=== PATIENT | male | born 1975 | race Caucasian/White ===

== ENCOUNTER 2021-11-20 19:32 | Emergency (ER) | payer MEDICAID ==
[~2021-11-20] VITALS: Ht 175.3 cm; Wt 81.8 kg
--- NOTE | 2021-11-20 20:07 | NUR ---
PT ROOMED IN BED 15. ASSUMED CARE OF PT
[2021-11-20 20:16] LABS: BASOPHILS # (AUTO) 0.1 X10'3 (0-0.2); BASOPHILS % (AUTO) 0.6 % (0-1); EOSINOPHILS % (AUTO) 0.3 % (0-6); HEMATOCRIT 49.7 % (42.0-52.0); HEMOGLOBIN 16.8 g/dl (14.0-17.9); LYMPHOCYTES # (AUTO) 2.6 X10'3 (1.1-4.8); LYMPHOCYTES % (AUTO) 19.1 % (21-51); MEAN CORPUSCULAR HEMOGLOBIN 29.9 PG (27.0-31.0); MEAN CORPUSCULAR HGB CONC 33.8 g/dL (33.0-36.5); MEAN CORPUSCULAR VOLUME 88.6 FL (78-98); MEAN PLATELET VOLUME 8.4 FL (7.4-10.4); MONOCYTES % (AUTO) 7.5 % (2-12); NEUTROPHILS # (AUTO) 9.9 X10'3 (1.8-7.7); NEUTROPHILS % (AUTO) 72.5 % (42-75); PLATELET COUNT 292 X10'3 (140-440); RED BLOOD COUNT 5.61 X10'6 (4.70-6.10); WHITE BLOOD COUNT 13.6 X10'3 (4.5-11.0)
[2021-11-20 20:28] LABS: ALANINE AMINOTRANSFERASE 52 U/L (12-78); ALBUMIN 4.3 G/DL (3.4-5.0); ALBUMIN/GLOBULIN RATIO 1.1 (1.1-1.5); ALKALINE PHOSPHATASE 123 IU/L (46-116); ANION GAP 19 (8-16); ASPARTATE AMINO TRANSFERASE 49 U/L (10-37); BILIRUBIN,TOTAL 1.2 MG/DL (0.1-1.0); BLOOD UREA NITROGEN 17 MG/DL (7-18); BUN/CREATININE RATIO 12.4 (5.4-32.0); CALCIUM 9.6 MG/DL (8.5-10.1); CHLORIDE 90 MMOL/L (99-107); CREATININE 1.37 MG/DL (0.60-1.10); GLUCOSE 150 MG/DL (70-104); SODIUM 133 MMOL/L (135-145); TOTAL CARBON DIOXIDE 24.2 MMOL/L (24-32); TOTAL PROTEIN 8.2 G/DL (6.4-8.2); eGFR 56 ML/MIN
[2021-11-20 20:32] LABS: ETHANOL 0.135 GM/DL (0.0-0.010)
[2021-11-20] MEDS ORDERED: normal saline 1000ml 1,000 ML IV ONE ×2 (20:35)
[2021-11-20] MEDS ORDERED: ondansetron/PF 4mg/2ml inj IV ONE (20:35)
[2021-11-20 20:59] LABS: URINE AMPHETAMINE SCREEN NEGATIVE (Neg); URINE BARBITUATE SCREEN NEGATIVE (Neg); URINE BENZODIAZEPINES SCREEN NEGATIVE (Neg); URINE CANNABINOID SCREEN NEGATIVE (Neg); URINE COCAINE SCREEN NEGATIVE (Neg); URINE METHADONE SCREEN NEGATIVE (Neg); URINE OPIATE SCREEN NEGATIVE (Neg); URINE PHENCYCLIDINE SCREEN NEGATIVE (Neg)
[2021-11-20] MEDS ORDERED: LORazepam 2 mg/ml vial IV ONE (23:25)
[2021-11-21] MEDS ORDERED: magnesium oxide 400mg tablet PO ONE (00:50)
[2021-11-21] MEDS ORDERED: normal saline 1000ML IV soln IVB ONE (00:50)
[2021-11-21] MEDS ORDERED: haloperidol lactate 5mg/ml inj IM ONE (00:50)
[2021-11-21] MEDS ORDERED: normal saline 1000ml 1,000 ML IV ONE (00:50)
[2021-11-21] MEDS ORDERED: thiamine 100mg tablet PO ONE (00:55)
[2021-11-21] MEDS ORDERED: chlordiazePOXIDE 25mg capsule PO ONE (00:55)
[2021-11-21] MEDS ORDERED: folic acid 1mg tablet PO ONE (00:55)
[2021-11-21] MEDS ORDERED: CHLO25CA10 PO (00:57)
[2021-11-21] MEDS ORDERED: PROM12.512 PO (00:58)
[2021-11-21 01:10] LABS: MAGNESIUM 1.5 MG/DL (1.5-2.4)
[2021-11-21 02:23] VITALS: BP 129/74
== END 2021-11-21 03:19 | disposition home or self-care (01) ==
LOC: ER 19:33
DX: F10.230 Alcohol dependence with withdrawal, uncomplicated (principal); F41.9 Anxiety disorder, unspecified; Y90.9 Presence of alcohol in blood, level not specified; F12.10 Cannabis abuse, uncomplicated
CPT/HCPCS: 36415; 80053; 80305; 80320; 83735; 84484; 85025; 93005; 96361; 96372; 96374; 96375; 99285; J1630; J2060; J2405; J7030

== ENCOUNTER 2023-11-18 21:29 | Inpatient (IN) | payer MEDICAID ==
[~2023-11-18] VITALS: Ht 172.7 cm; Wt 73.8 kg
[~2023-11-18 21:29] MED LIST: CHLO25CA10 PO; PROM12.512 PO
[2023-11-18 22:00] LABS: BASOPHILS % (AUTO) 0.2 % (0-1); EOSINOPHILS % (AUTO) 0.1 % (0-6); HEMATOCRIT 42.8 % (42.0-52.0); HEMOGLOBIN 14.9 g/dl (14.0-17.9); LYMPHOCYTES % (AUTO) 24.4 % (21-51); MEAN CORPUSCULAR HEMOGLOBIN 31.6 PG (27.0-31.0); MEAN CORPUSCULAR HGB CONC 34.9 g/dL (33.0-36.5); MEAN CORPUSCULAR VOLUME 90.7 FL (78-98); MEAN PLATELET VOLUME 9.7 FL (7.4-10.4); MONOCYTES # (AUTO) 0.9 X10'3 (0-0.9); MONOCYTES % (AUTO) 10.9 % (2-12); NEUTROPHILS # (AUTO) 5.4 X10'3 (1.8-7.7); NEUTROPHILS % (AUTO) 64.4 % (42-75); PLATELET COUNT 69 X10'3 (140-440); RED BLOOD COUNT 4.72 X10'6 (4.70-6.10); RED CELL DISTRIBUTION WIDTH 14.1 % (11.5-14.5); WHITE BLOOD COUNT 8.4 X10'3 (4.5-11.0)
[2023-11-18 22:19] LABS: ALBUMIN 3.6 G/DL (3.4-5.0); ANION GAP 10 (8-16); BLOOD UREA NITROGEN 19 MG/DL (7-18); BUN/CREATININE RATIO 16.5 (10.0-20.0); CALCIUM 9.1 MG/DL (8.5-10.1); CHLORIDE 79 MMOL/L (99-107); CREATININE 1.15 MG/DL (0.60-1.10); GLUCOSE 182 MG/DL (70-104); POTASSIUM 3.1 MMOL/L (3.5-5.1); PRO BRAIN NATRIURETIC PEPTIDE 320 PG/ML (0-125); TOTAL CARBON DIOXIDE 30.4 MMOL/L (24-32); eCRCL 76 ML/MIN; eGFR 68 ML/MIN
[2023-11-18 22:23] LABS: SODIUM 119 MMOL/L (135-145)
[2023-11-18] MEDS: normal saline 1000ml 1,000 ML IV ONE (23:43)
[2023-11-18] MEDS: sodium chloride 1gm tablet PO ONE (23:46)
[2023-11-19] MEDS ORDERED: iohexol 300mg/ml 100ml inj. ONE (00:24)
[2023-11-19] MEDS: ondansetron/PF 4mg/2ml inj IV ONE (00:50)
[2023-11-19] MEDS: LORazepam 2 mg/ml vial IV ONE ×2 (00:50→05:45)
[2023-11-19] MEDS ORDERED: ketorolac trometh. 30mg/ml inj. IV ONE (00:55)
[2023-11-19] MEDS: ketorolac tromethamine 15mg/ml inj. IV ONE (01:10)
[2023-11-19 01:55] LABS: URINE AMPHETAMINE SCREEN NEGATIVE (Neg); URINE BARBITUATE SCREEN NEGATIVE (Neg); URINE BENZODIAZEPINES SCREEN NEGATIVE (Neg); URINE CANNABINOID SCREEN NEGATIVE (Neg); URINE COCAINE SCREEN NEGATIVE (Neg); URINE METHADONE SCREEN NEGATIVE (Neg); URINE OPIATE SCREEN NEGATIVE (Neg); URINE PHENCYCLIDINE SCREEN NEGATIVE (Neg)
[2023-11-19 02:01] LABS: ETHANOL < 10 MG/DL (<10)
[2023-11-19] MEDS ORDERED: magnesium 4gm in 100ml NS 100 ML IV PRN (02:10)
[2023-11-19] MEDS ORDERED: ondansetron/PF 4mg/2ml inj IV PRN (02:10)
[2023-11-19] MEDS ORDERED: acetaminophen 325mg tablet PO PRN (02:10)
[2023-11-19] MEDS ORDERED: magnesium hydroxide 30ml (MOM) UD suspension PO PRN (02:10)
[2023-11-19] MEDS ORDERED: magnesium Cl slow-release 64mg tablet PO PRN (02:10)
[2023-11-19] MEDS ORDERED: magnesium 2GM in 50ml NS 50 ML IV PRN (02:10)
[2023-11-19] MEDS ORDERED: mag hydrox/Alum hydrox/simeth 30ml oral suspension PO PRN (02:10)
[2023-11-19] MEDS ORDERED: potassium Cl 40MEQ/1/2NS 520ml 520 ML IV PRN (02:10)
[2023-11-19] MEDS: pantoprazole 40 MG vial IV ONE (02:22)
[2023-11-19] MEDS: normal saline 1000ml 1,000 ML IV SCH (02:22)
[2023-11-19 04:49] LABS: HEMOGLOBIN A1C 6.3 % (4.5-6.2)
[2023-11-19 04:52] LABS: OSMOLALITY 270 MOSM/K (280-300)
[2023-11-19 04:58] LABS: ANION GAP 6 (8-16); BLOOD UREA NITROGEN 19 MG/DL (7-18); CALCIUM 8.4 MG/DL (8.5-10.1); CHLORIDE 88 MMOL/L (99-107); CREATININE 0.95 MG/DL (0.60-1.10); FREE T4 (FREE THYROXINE) 1.31 NG/DL (0.73-1.40); GLUCOSE 100 MG/DL (70-104); SODIUM 128 MMOL/L (135-145); THYROID STIMULATING HORMONE 2.55 ulU/ml (0.34-4.50); TOTAL CARBON DIOXIDE 34.2 MMOL/L (24-32); eCRCL 92 ML/MIN; eGFR 85 ML/MIN
[2023-11-19] MEDS: potassium Cl 20 mEq SR tablet PO PRN (05:05)
[2023-11-19] MEDS: dextrose 5%-water 1,000 ML IV SCH (05:26)
[2023-11-19] MEDS: K and/or MAG REPLACEMENT MC SCH (08:00)
[2023-11-19] MEDS ORDERED: pantoprazole 40 MG vial IV SCH (08:00)
[2023-11-19] MEDS: LORazepam 1 MG tablet PO PRN (08:14)
[2023-11-19] MEDS: heparin, porcine 5000 units/ml vial SQ SCH (08:19)
[2023-11-19] MEDS: pantoprazole 40 MG vial IV SCH (08:23)
[2023-11-19] MEDS: thiamine 100mg/ml 2ml inj. IV SCH (08:24)
[2023-11-19] MEDS: folic acid 1mg/0.2ml inj IV SCH (08:59)
[2023-11-19] MEDS: LORazepam 2 mg/ml vial IV PRN (09:19)
[2023-11-19] MEDS ORDERED: phenobarbital inj 130 MG in normal saline 100ml IV soln 99 ML IV ONE (10:15)
[2023-11-19] MEDS: phenobarbital sod 130mg/ml inj. IV SCH (10:21)
[2023-11-19] MEDS: phenobarbital sod 130mg/ml inj. IV ONE ×2 (10:34→13:28)
[2023-11-19] MEDS ORDERED: CLON0.1T2 PO (10:47)
[2023-11-19] MEDS ORDERED: PANT40TA54 PO (10:47)
[2023-11-19] MEDS ORDERED: FOLI1TAB27 PO (10:47)
[2023-11-19] MEDS ORDERED: THIA100T70 PO (10:47)
[2023-11-19] MEDS ORDERED: PYRI-4 PO (10:47)
[2023-11-19] MEDS ORDERED: METF-436 PO (10:47)
[2023-11-19 12:36] LABS: ANION GAP 8 (8-16); CHLORIDE 87 MMOL/L (99-107); POTASSIUM 3.9 MMOL/L (3.5-5.1); SODIUM 129 MMOL/L (135-145)
[2023-11-19 12:42] LABS: ALBUMIN 3.5 G/DL (3.4-5.0); BLOOD UREA NITROGEN 19 MG/DL (7-18); BUN/CREATININE RATIO 17.3 (10.0-20.0); CALCIUM 9.3 MG/DL (8.5-10.1); GLUCOSE 122 MG/DL (70-104); PHOSPHORUS 1.8 MG/DL (2.3-4.5); eCRCL 79 ML/MIN; eGFR 71 ML/MIN
[2023-11-19] MEDS: haloperidol lactate 5mg/ml inj IM PRN (13:19)
[2023-11-20 04:48] LABS: HEMOGLOBIN 13.2 g/dl (14.0-17.9); MONOCYTES # (AUTO) 0.5 X10'3 (0-0.9)
[2023-11-20 04:49] LABS: BASOPHILS % (AUTO) 0.2 % (0-1); EOSINOPHILS # (AUTO) 0.1 X10'3 (0-0.9); EOSINOPHILS % (AUTO) 0.7 % (0-6); HEMATOCRIT 38.5 % (42.0-52.0); LYMPHOCYTES # (AUTO) 1.6 X10'3 (1.1-4.8); LYMPHOCYTES % (AUTO) 22.5 % (21-51); MEAN CORPUSCULAR HEMOGLOBIN 31.7 PG (27.0-31.0); MEAN CORPUSCULAR HGB CONC 34.3 g/dL (33.0-36.5); MEAN CORPUSCULAR VOLUME 92.6 FL (78-98); MEAN PLATELET VOLUME 9.6 FL (7.4-10.4); MONOCYTES % (AUTO) 7.7 % (2-12); NEUTROPHILS # (AUTO) 4.8 X10'3 (1.8-7.7); NEUTROPHILS % (AUTO) 68.9 % (42-75); PLATELET COUNT 58 X10'3 (140-440); RED BLOOD COUNT 4.15 X10'6 (4.70-6.10); RED CELL DISTRIBUTION WIDTH 13.6 % (11.5-14.5)
[2023-11-20 05:00] LABS: ALANINE AMINOTRANSFERASE 152 U/L (12-78); ALBUMIN 2.8 G/DL (3.4-5.0); ALBUMIN/GLOBULIN RATIO 0.9 (1.1-1.5); ALKALINE PHOSPHATASE 93 IU/L (46-116); ANION GAP 2 (8-16); ASPARTATE AMINO TRANSFERASE 176 U/L (10-37); BILIRUBIN,TOTAL 1.1 MG/DL (0.1-1.0); BLOOD UREA NITROGEN 11 MG/DL (7-18); BUN/CREATININE RATIO 12.9 (10.0-20.0); CALCIUM 8.3 MG/DL (8.5-10.1); CHLORIDE 91 MMOL/L (99-107); CHOL/HDL RATIO 2.6 (0.00-4.99); CHOLESTEROL 169 MG/DL (0-200); CREATININE 0.85 MG/DL (0.60-1.10); GLUCOSE 134 MG/DL (70-104); HDL CHOLESTEROL 64 MG/DL (35-60); LDL CHOLESTEROL 48 MG/DL (50-100); POTASSIUM 3.2 MMOL/L (3.5-5.1); SODIUM 128 MMOL/L (135-145); TOTAL CARBON DIOXIDE 35.5 MMOL/L (24-32); TRIGLYCERIDES 65 MG/DL (20-135); eCRCL 103 ML/MIN; eGFR > 90 ML/MIN
[2023-11-20 07:23] VITALS: BP 105/73; PULSE 98; RESP 16; TEMP 98; O2SAT 98
[2023-11-20 08:00] VITALS: RESP 18; O2SAT 94
[2023-11-20 10:00] VITALS: BP 113/65; PULSE 73; RESP 14; TEMP 98.2; O2SAT 99
[2023-11-20] MEDS: potassium Cl 20 mEq SR tablet PO PRN (11:48)
[2023-11-20 18:00] VITALS: BP 123/75; PULSE 104; RESP 14; TEMP 98.4; O2SAT 98
[2023-11-20 22:00] VITALS: BP 128/71; PULSE 105; RESP 15; TEMP 97.9; O2SAT 98
[2023-11-21 06:00] VITALS: BP 109/69; PULSE 101; RESP 15; TEMP 97.8; O2SAT 98
[2023-11-21 10:00] VITALS: BP 122/76; PULSE 98; RESP 16; TEMP 97.9; O2SAT 98
[2023-11-21 12:39] LABS: BASOPHILS % (AUTO) 0.2 % (0-1); EOSINOPHILS # (AUTO) 0.1 X10'3 (0-0.9); EOSINOPHILS % (AUTO) 1.7 % (0-6); HEMATOCRIT 40.5 % (42.0-52.0); HEMOGLOBIN 13.7 g/dl (14.0-17.9); LYMPHOCYTES # (AUTO) 2.5 X10'3 (1.1-4.8); LYMPHOCYTES % (AUTO) 28.5 % (21-51); MEAN CORPUSCULAR HEMOGLOBIN 31.9 PG (27.0-31.0); MEAN CORPUSCULAR HGB CONC 33.8 g/dL (33.0-36.5); MEAN CORPUSCULAR VOLUME 94.4 FL (78-98); MEAN PLATELET VOLUME 9.8 FL (7.4-10.4); MONOCYTES # (AUTO) 1.3 X10'3 (0-0.9); NEUTROPHILS # (AUTO) 4.8 X10'3 (1.8-7.7); NEUTROPHILS % (AUTO) 54.6 % (42-75); PLATELET COUNT 115 X10'3 (140-440); RED BLOOD COUNT 4.29 X10'6 (4.70-6.10); RED CELL DISTRIBUTION WIDTH 13.6 % (11.5-14.5); WHITE BLOOD COUNT 8.7 X10'3 (4.5-11.0)
[2023-11-21 13:01] LABS: ALANINE AMINOTRANSFERASE 132 U/L (12-78); ALBUMIN 2.9 G/DL (3.4-5.0); ALBUMIN/GLOBULIN RATIO 0.8 (1.1-1.5); ALKALINE PHOSPHATASE 119 IU/L (46-116); ANION GAP 5 (8-16); ASPARTATE AMINO TRANSFERASE 73 U/L (10-37); BILIRUBIN,TOTAL 0.4 MG/DL (0.1-1.0); BLOOD UREA NITROGEN 12 MG/DL (7-18); BUN/CREATININE RATIO 16.4 (10.0-20.0); CALCIUM 8.8 MG/DL (8.5-10.1); CHLORIDE 95 MMOL/L (99-107); CREATININE 0.73 MG/DL (0.60-1.10); GLUCOSE 156 MG/DL (70-104); POTASSIUM 3.9 MMOL/L (3.5-5.1); SODIUM 129 MMOL/L (135-145); TOTAL CARBON DIOXIDE 29.3 MMOL/L (24-32); TOTAL PROTEIN 6.5 G/DL (6.4-8.2); eCRCL 120 ML/MIN; eGFR > 90 ML/MIN
[2023-11-21 13:12] LABS: TOTAL CELLS COUNTED 100
[2023-11-21 13:13] LABS: PLATELET ESTIMATE DECREASED
== END 2023-11-21 14:20 | disposition home or self-care (01) | DRG 243 ==
LOC: ER 21:30 → ED HOLD 11-19 02:13 → ORTHO 4S 11-20 07:10
PROVIDERS: ADMIT Surgery Surgical Critical Care; ATTEND Internal Medicine
PROC: BW2F1ZZ Computerized Tomography (CT Scan) of Neck using Low Osmolar Contrast (ICD-10-PCS; principal; 2023-11-19)
DX: K20.90 Esophagitis, unspecified without bleeding (principal); N17.0 Acute kidney failure with tubular necrosis; F10.231 Alcohol dependence with withdrawal delirium; E87.1 Hypo-osmolality and hyponatremia; E87.6 Hypokalemia; E86.0 Dehydration; Z88.0 Allergy status to penicillin; Z79.84 Long term (current) use of oral hypoglycemic drugs; Z79.899 Other long term (current) drug therapy
CPT/HCPCS: 36415; 70450; 70491; 71045; 80048; 80053; 80061; 80305; 80320; 82948; 83036; 83735; 83880; 83930; 84100; 84439; 84443; 84484; 85007; 85025; 87081; 92508; 92616; 93005; 99291; A6590; C9113; G0378; J1630; J1644; J1885; J2060; J2405; J2560; J3411; J3490; J7030; J7070; J7121; Q9967